=== PATIENT | male | born 1995 | race Caucasian/White ===

== ENCOUNTER 2017-12-14 12:32 | Emergency (ER) | payer BC, OTHER ==
[2017-12-14 12:44] VITALS: RESP 18
[2017-12-14] MEDS ORDERED: CYCLOBENZAPRINE 5 MG TAB PO STA (13:07)
[2017-12-14] MEDS ORDERED: KETOROLAC 30 MG/ML 1 ML VIAL IM STA (13:07)
--- NOTE | 2017-12-14 13:45 | ED ---
Back Pain HPI - General Chief Complaint: Back Pain/Injury Stated Complaint: [facility] - low back pain Time Seen by Provider: 12/14/17 12:46 Source: patient Limitations: no limitations - History of Present Illness Initial Comments: 22-year-old male past medical history Factor V deficiency presenting today for chief complaint of low back pain. Patient states Tuesday while at work at [employer] he had stepped off a pile of dirt he felt as though he "tweaked" his lower left back. Patient denies falling, head injury or injury to any extremity. Patient states pain increases with ambulation. He describes it as a constant sharp sensation in his lumbar spine. Patient thought at first it was muscle related however the pain persisted for 2 days he was concerned about possible injury to the back. Mother has [facility] however she wanted to present for evaluation prior to that. Patient denies loss of bowel bladder control, urinary retention, numbness , tingling or loss sensation lower extremities, muscle weakness of the lower extremities, IV drug use, fever, chills, history of cancer or unexplained weight loss or urinary symptoms. Upon arrival pt is ambulating without difficulty, VS within normal limits. - Related Data Home Medications Medication Instructions Recorded Confirmed Ascorbic Acid [Vitamin C] 500 mg PO DAILY 09/14/15 09/14/15 Cholecalciferol [Vitamin D3] 1,000 unit PO DAILY 09/14/15 09/14/15 Rivaroxaban [Xarelto] 10 mg PO DAILY 09/14/15 09/14/15 Previous Rx's Medication Instructions Recorded Cyclobenzaprine [Flexeril] 5 mg PO HS 3 Days #3 tab 12/14/17 Ibuprofen [Motrin] 800 mg PO Q8H PRN 7 Days #21 tab 12/14/17 Allergies Allergy/AdvReac Type Severity Reaction Status Date / Time bacitracin Allergy Unknown Verified 12/14/17 12:41 [From Neosporin ([id number])] bacitracin zinc Allergy Unknown Verified 12/14/17 12:41 [From Neosporin ([id number])] neomycin sulfate Allergy Unknown Verified 12/14/17 12:41 [From Neosporin ([id number])] polymyxin B Allergy Unknown Verified 12/14/17 12:41 [From Neosporin ([id number])] Review of Systems ROS Statement: Those systems with pertinent positive or pertinent negative responses have been documented in the HPI. ROS Other: All systems not noted in ROS Statement are negative. Constitutional: Denies: fever, chills, night sweats ENT: Denies: ear pain, throat pain Respiratory: Denies: cough, dyspnea Cardiovascular: Denies: chest pain, palpitations Endocrine: Denies: fatigue Gastrointestinal: Denies: abdominal pain, nausea, vomiting, diarrhea, constipation Genitourinary: Denies: urgency, dysuria, frequency, hematuria Musculoskeletal: Reports: as per HPI, back pain Skin: Denies: rash, lesions Neurological: Denies: headache, weakness, numbness, paresthesias, confusion Past Medical History Past Medical History: Blood Disorder Additional Past Medical History / Comment(s): FACTOR 5 History of Any Multi-Drug Resistant Organisms: None Reported Past Surgical History: Orthopedic Surgery Past Psychological History: No Psychological Hx Reported Smoking Status: Never smoker Past Alcohol Use History: None Reported Past Drug Use History: None Reported General Exam - General Exam Comments Initial Comments: General: The patient is awake and alert, in no distress, and does not appear acutely ill. Eye: Pupils are equal, round and reactive to light, extra-ocular movements are intact. No nystagmus. There is normal conjunctiva bilaterally. No signs of icterus. Cardiovascular: There is a regular rate and rhythm. No murmur, rub or gallop is appreciated. Respiratory: Lungs are clear to auscultation, respirations are non-labored, breath sounds are equal. No wheezes, stridor, rales, or rhonchi. Gastrointestinal: Soft, non-distended, non-tender abdomen without masses or organomegaly noted. There is no rebound or guarding present. No CVA tenderness Musculoskeletal: No rashes, lesions, normal ROM at the lumbar spine, pt complain of pain with bending movement. Pt denies midline tenderness to palpation, pt admits to paravertebral tenderness to palpation of the lumbar spine. Strength 5/5 of the LE equally b/l. (-) SLR b/l. Pt able to heel and toe walk without difficulty. Sensation intact of the LE equally b/l. Radial and DP pulses equal bilaterally 2+. +2/5 DTR of the LE b/l. No myoclonus or fasciculations. Neurological: A&O x 3. CN II-XII intact, There are no obvious motor or sensory deficits. Coordination appears grossly intact. Speech is normal. Skin: Skin is warm and dry and no rashes or lesions are noted. Psychiatric: Cooperative, appropriate mood & affect, normal judgment. Limitations: no limitations Course Vital Signs 12/14/17 12/14/17 12:41 15:03 Temperature 97.5 F L 97.6 F Pulse Rate 68 59 L Respiratory 18 18 Rate Blood Pressure 121/77 117/72 O2 Sat by Pulse 99 98 Oximetry Medical Decision Making - Medical Decision Making XR (-) no fracture, disc height spacing maintained. No signs alarming features of low back pain or signs on PE/hx concerning for cauda equina at this time. Pt is tender to paravertebral muscles of the lumbar spine concerning for strain. Pt neurovascularly intact. Pt has scheduled appointment with orthopedic surgery for Tuesday, but was instructed to keep appointment for evaluation. In addition pt was given flexeril and ibuprofen RX for muscle spasm/tension and pain mgmt. return parameters discussed in detail. Patient verbalizes understanding. The risks associated with taking Flexeril were discussed with patient. Patient was instructed not to operate machinery, work or drive while taking the medication. Patient instructed to specifically take medication at night. Pt denied questions upon discharge. Patient was discharged in stable condition. Case discussed with Dr. Thomas prior to d/c who agreed with impression and plan. Disposition Clinical Impression: Low back strain Disposition: HOME SELF-CARE Condition: Good Instructions: Low Back Strain (ED), Acute Low Back Pain (ED) Additional Instructions: Please use over the counter pain medication as discussed. Please follow-up with family doctor in the next 2 days. Please see orthopedic surgery as scheduled currently. DO NOT OPERATE MACHINERY, DRIVE OR WORK while taking medication prescribed, take only at night. Please return to emergency room if the symptoms increase or worsen or for any other concerns. Prescriptions: Cyclobenzaprine [Flexeril] 5 mg PO HS 3 Days #3 tab Ibuprofen [Motrin] 800 mg PO Q8H PRN 7 Days #21 tab PRN Reason: Pain Is patient prescribed a controlled substance at d/c from ED?: No Referrals: Catie Tamayo III, MD [Primary Care Provider] - 1-2 days Jesus Haskins MD [STAFF PHYSICIAN] - 1-2 days Time of Disposition: 14:47
--- NOTE | 2017-12-14 14:33 | XR ---
EXAMINATION TYPE: XR lumbar spine 2 or 3V DATE OF EXAM: 12/14/2017 CLINICAL HISTORY: Back pain after injury. TECHNIQUE: Frontal and lateral images of the lumbar spine are obtained. COMPARISON: None FINDINGS: There are 5 lumbar type vertebral bodies identified. The lumbar spine shows satisfactory alignment without evidence of acute fracture or dislocation. Vertebral body heights and disk space he ights are within normal limits. The oblique images appear within normal limits. The overlying soft tissue appears unremarkable. IMPRESSION: No acute fracture or dislocation is seen in the lumbar spine.
[2017-12-14 15:04] VITALS: BP 117/72; PULSE 59; TEMP 97.6
== END 2017-12-14 15:04 | disposition home or self-care (01) ==
LOC: EC 12:32
DX: S39.012A Strain of muscle, fascia and tendon of lower back, initial encounter (principal); D68.2 Hereditary deficiency of other clotting factors; Z79.01 Long term (current) use of anticoagulants; Z79.899 Other long term (current) drug therapy; Z88.1 Allergy status to other antibiotic agents; X50.1XXA Overexertion from prolonged static or awkward postures, initial encounter; Y92.69 Other specified industrial and construction area as the place of occurrence of the external cause; Y99.0 Civilian activity done for income or pay
CPT/HCPCS: 72100; 99283; 96372; J1885

== ENCOUNTER → 2018-03-10 | Outpatient (CLI) | payer BC ==
--- NOTE | 2018-03-10 16:31 | US ---
EXAMINATION TYPE: US abdomen complete DATE OF EXAM: 03/10/2018 COMPARISON: NONE CLINICAL HISTORY: R10.84 Generalized Abdomen Pain. generalized pain, npo EXAM MEASUREMENTS: Liver Length: 15.2 cm Gallbladder Wall: 0.2 cm CBD: 0.4 cm CHD: 0.3 cm Spleen: 7.3 cm Right Kidney: 10.5 x 4.9 x 4.0 cm Left Kidney: 9.8 x 4.6 x 4.6 cm Pancreas: wnl Liver: wnl Gallbladder: wnl Evidence for sonographic Haskins's sign: neg CBD: wnl CHD: wnl Spleen: wnl Right Kidney: wnl Left Kidney: wnl Upper IVC: wnl Abd Aorta: wnl IMPRESSION: 1. Normal abdomen ultrasound
== END | disposition home or self-care (01) ==
LOC: RADUSWWP 09:22
PROVIDERS: ATTEND Nurse Practitioner Family
DX: R10.84 Generalized abdominal pain (principal)
CPT/HCPCS: 76700

== ENCOUNTER → 2019-02-27 | Outpatient (CLI) | payer BC ==
[2019-02-27 15:59] LABS: C Reactive Protein <0.4 mg/dL (0.0-0.8)
== END | disposition home or self-care (01) ==
LOC: LABWHC1 09:41
DX: R10.9 Unspecified abdominal pain (principal)
CPT/HCPCS: 36415; 84443; 85652; 86140

== ENCOUNTER → 2021-08-12 | Outpatient (CLI) | payer BC ==
--- NOTE | 2021-08-13 08:33 | US ---
EXAMINATION TYPE: US thyroid st tissue head/neck DATE OF EXAM: 08/12/2021 COMPARISON: NONE CLINICAL HISTORY: R59.0 Localized enlarged lymph nodes. Patient feels lump left lateral neck Left lateral neck scanned at area of lump. There appears to be a lymph node measuring 2.0 x 0.8 x 1.1 cm corresponding to the palpable area. IMPRESSION: Benign-appearing lymph node left lateral neck. F additional workup would be of benefit, CT with contr ast could be performed.
== END | disposition home or self-care (01) ==
LOC: RADUSWWP 15:52
PROVIDERS: ATTEND Family Medicine
DX: R59.0 Localized enlarged lymph nodes (principal)
CPT/HCPCS: 76536